=== PATIENT | female | born 1980 | race Caucasian/White ===

== ENCOUNTER 2016-09-04 11:11 | Day surgery (SDC) | payer OTHER ==
--- NOTE | 2016-09-03 14:15 | GHP ---
[f rep st] PREOP HISTORY AND PHYSICAL DATE OF ADMISSION: 09/04/2016 PLANNED PROCEDURE: Hysteroscopy with morcellation of endometrial tissue. INDICATIONS: Patient is a 35-year-old, 3, para 3-0-0-3, who has had progressively worsening periods over the last year. The patient states her cycles are regular. They are very heavy the fi rst 2-3 days. She has use a super plus tampon and a pad overnight and changes her tampon frequently . We initially got a pelvic ultrasound in January of 2016, which showed a thickened endometrium wit h a suspected polyp. Patient declined surgery at that time and opted to have a repeat ultrasound se veral months later and patient came in for an ultrasound in 08/01/2016, the uterus measuring 6.5 x 3 .5 x 4.6 cm with an endometrium measuring 1.14 cm and a 13 x 7 x 9 mm polyp. Left ovary was normal. Right ovary had a follicle. Management options extensively were reviewed with the patient. Tasha esteban will undergo hysteroscopy with morcellation of endometrial polyp. She declines endometrial ablat ion. Risks and benefits have been extensively reviewed with the patient, and patient has been prope rly consented. MEDICAL HISTORY: Menorrhagia, history of anal fissure, history of bladder infections, history of an emia in . MEDICATIONS: Multivitamins. SURGICAL HISTORY: [place] tooth extraction. ALLERGIES: Sulfa and amoxicillin. SOCIAL HISTORY: Patient is . She lives with her and their 3 children who are 6, 4 a nd 1 year old. She denies tobacco or drug use. She does drink 2 alcoholic beverages a week. She d oes have caffeine daily. FAMILY MEDICAL HISTORY: Significant for Mother having a history of a pre cancerous polyp which resu lted in her having a hysterectomy, but she did not have uterine cancer. [employer]ING MACHINE OPERATOR HISTORY: Menarche age 13. Periods every 26 days, lasting 7 days and can be very heavy. She is a 3, para 3-0-0-3. In 08/2009, she had a spontaneous vaginal delivery of a 7-pounds, 10 -ounce male infant. In 10/2011, she had a spontaneous vaginal delivery of an 8-pound male . In 09/2014, she had a spontaneous vaginal delivery of a male . Patient denies any history of any abnormal Pap smears or sexually transmitted diseases. REVIEW OF SYSTEMS: A 10-point review of systems is negative except for mentioned pertinent positive s of menorrhagia. PHYSICAL EXAM: VITAL SIGNS: Stable. Blood pressure is 106/70. Her weight is 137.4. GENERAL APPE ARANCE: Nondistressed. NEURO: Alert and oriented x3 with appropriate affect. NECK: Mobile and s upple, and no thyromegaly is noted. HEART: Rate is regular. LUNGS: Clear to auscultation bilater ally. ABDOMEN: Soft, nondistended, nontender. EXTREMITIES: Reveal no calf tenderness or edema. PELVIC: Reveals a mobile, midposition uterus with no adnexal masses. Pelvic ultrasound was describ ed above. ASSESSMENT AND PLAN: A 35-year-old, 3, para 3-0-0-3, who will present for a hysteroscopy wi th morcellation of endometrial polyp. Risks and benefits have been extensively reviewed with the peyton moore, and patient has been properly consented. /[id number]/MODL
[2016-09-04] MEDS ORDERED: SILVER NITRATE APPLICATOR 1 APPL TP ONE ×2 (11:31→12:26)
[2016-09-04] MEDS ORDERED: MIDAZOLAM 2 MG/2 ML VIAL ONE (11:41)
[2016-09-04] MEDS ORDERED: PROPOFOL/EMULSION 500 MG/50 ML BOTTLE IV ONE (11:49)
[2016-09-04] MEDS ORDERED: fentaNYL 100 MCG/2 ML INJ ONE (11:49)
--- NOTE | 2016-09-04 13:19 | GOP ---
[f rep st] OPERATIVE REPORT DATE OF OPERATION: 09/04/2016 SURGEON: Danya Husain DO ANESTHESIA: Sedation. ANESTHESIOLOGIST: Efrain Ellsworth MD. PREOPERATIVE DIAGNOSIS: Menorrhagia, suspected endometrial polyp. POSTOPERATIVE DIAGNOSIS: Menorrhagia, suspected endometrial polyp. PROCEDURE PERFORMED: Hysteroscopy with morcellation of endometrial tissue. FINDINGS: 1. Normal anteverted uterus with no adnexal masses. 1. Hysteroscopic findings: Thickened endometrium posteriorly. No obvious polyps noted. 2. SPECIMENS: Endometrial curettings. ESTIMATED BLOOD LOSS: 10 cc. INDICATIONS: Patient is a 35-year-old, 3, para 3-0-0-3, with a history of progressively wor sening. Over the last year, her cycles are regular. Her periods are very heavy the 1st 2-3 days. She has to use a super plus tampon and pad overnight and change her tampon frequently. She had an u ltrasound performed in January 2016 which showed a thickened endometrium with a suspected polyp. Ean davis declined surgery at that time and repeated verbal elected a repeat ultrasound several months later , which showed a persistent probable polyp. Management options were reviewed with the patient. Xiomara magana elected to proceed with a hysteroscopy with morcellation of endometrial tissue. She declined e ndometrial ablation. Risks and benefits were reviewed with the patient. Patient was properly conse nted. DESCRIPTION OF PROCEDURE: Patient was taken to the operating room with intravenous fluids in place. She was then placed on the operating room table in the dorsal supine position where general anesth esia was obtained. She was then repositioned into the dorsal lithotomy position with the Yellofin s tirrups and prepped and draped in normal sterile fashion. Exam under anesthesia revealed a mobile, anteverted uterus with no adnexal masses. A speculum was then placed in the patient's vagina. An A llis clamp was used to grasp the anterior lip of the cervix. The cervix was then carefully dilated to allow for the introduction of an operative hysteroscope. The hysteroscope was then introduced wi th fluid medium running. Bilateral tubal ostia were visualized. A thickened posterior lining of th e endometrium was noted. A questionable polyp was noted, but no obvious polyp was visualized. The morcellator was then introduced, and circumferential morcellation was performed of the endometrial t issue. Bilateral tubal ostia were more clearly visualized. Following that, no obvious fibroids wer e noted within the endometrial cavity. The hysteroscope was then withdrawn. The Allis was removed from the anterior lip of the cervix. A small laceration of the anterior lip of the cervix was coagu lated with a silver nitrate stick, and hemostasis was assured. Instruments were then removed from t he patient's vagina. The patient was returned to the dorsal supine position where she was easily aw oken from anesthesia. Sponge count was correct. The patient was transferred to recovery room in [facility] condition. /[id number]/MODL
== END 2016-09-04 14:30 | disposition home or self-care (01) ==
LOC: FSGY 11:11
PROVIDERS: ATTEND Obstetrics & Gynecology
PROC: 0UDB8ZX Extraction of Endometrium, Via Natural or Artificial Opening Endoscopic, Diagnostic (ICD-10-PCS; principal; 2016-09-04 12:00)
DX: N92.0 Excessive and frequent menstruation with regular cycle (principal); N84.0 Polyp of corpus uteri; Z88.0 Allergy status to penicillin; Z88.2 Allergy status to sulfonamides
CPT/HCPCS: 58558; C1782; J2250; J2704; J3010